=== PATIENT | male | born 1975 | race Caucasian/White ===

== ENCOUNTER 2016-04-30 18:28 | Emergency (ER) | payer OTHER ==
[2016-04-30 20:53] LABS: ALBUMIN 4.7 g/dL (3.5-5.0); BILIRUBIN - TOTAL 0.2 mg/dL (0.1-1.0); GLOBULIN (CALCULATION) 2.5 g/dL (2.2-4.2); POTASSIUM 4.2 mmol/L (3.5-5.1); TOTAL PROTEIN 7.2 g/dL (6.4-8.3)
== END 2016-04-30 22:04 | disposition home or self-care (01) ==
LOC: FER 18:28
PROVIDERS: Emergency Medicine Emergency Medical Services
DX: S33.5XXA Sprain of ligaments of lumbar spine, initial encounter (principal); K40.20 Bilateral inguinal hernia, without obstruction or gangrene, not specified as recurrent; K57.30 Diverticulosis of large intestine without perforation or abscess without bleeding; F17.210 Nicotine dependence, cigarettes, uncomplicated; Z88.2 Allergy status to sulfonamides; X50.1XXA Overexertion from prolonged static or awkward postures, initial encounter
CPT/HCPCS: 36415; 72110; 76870; 80053; J1100; J1170; J1885; J2405; J2800; Q9967

== ENCOUNTER 2020-12-14 04:20 | Emergency (ER) | payer OTHER ==
[~2020-12-14 04:20] MED LIST: BENTYL10 MG PO; CIPRO500 MG PO; METRONIDAZOLE500 MG PO; ULTRAM50 MG PO
[2020-12-14 04:53] LABS: BASOPHIL 0.5 % (0-2); EOSINOPHIL 1.5 % (0-5); HCT 48.1 % (42.0-52.0); HGB 16.1 g/dl (13.2-18.0); LYMPHOCYTE 27.9 % (15-48); MCH 32.7 pg (25.0-31.0); MCHC 33.5 g/dL (32.0-36.0); MCV 97.8 fL (78.0-100.0); MONOCYTE 7.8 % (0-12); MPV 8.7 fL (6.0-9.5); NRBC 0; PLT 220 K/uL (150-400); RBC 4.92 M/uL (4.70-6.00); RDW 12.2 % (11.5-14.0); WBC 12.7 K/uL (4.0-10.5)
[2020-12-14 05:11] LABS: ALBUMIN 3.8 g/dL (3.4-5.0); BILIRUBIN - TOTAL 0.4 mg/dL (0.2-1.0); BUN/CREAT RATIO (CALC) 22.2 RATIO; CREATININE 0.9 mg/dL (0.67-1.17); GLOBULIN (CALCULATION) 3.1 g/dL; POTASSIUM 4.2 mmol/L (3.5-5.1); TOTAL PROTEIN 6.9 g/dL (6.4-8.2)
[2020-12-14 06:19] LABS: BILIRUBIN NEGATIVE (NEGATIVE); BLOOD NEGATIVE Ery/uL (NEGATIVE); CLARITY CLEAR (CLEAR); COLOR YELLOW (YELLOW); GLUCOSE (U) NORMAL (NORMAL); LEUKOCYTES NEGATIVE Leu/uL (NEGATIVE); NITRITE NEGATIVE (NEGATIVE); PROTEIN NEGATIVE (NEGATIVE); UROBILINOGEN 0.2 mg/dL (0.2-1.0)
== END 2020-12-14 06:40 | disposition home or self-care (01) ==
LOC: FER 04:20
PROVIDERS: Emergency Medicine
DX: K57.32 Diverticulitis of large intestine without perforation or abscess without bleeding (principal); I10 Essential (primary) hypertension; F17.200 Nicotine dependence, unspecified, uncomplicated; Z88.2 Allergy status to sulfonamides
CPT/HCPCS: 36415; 80053; 81003; 83690; 85025; J1170; J1885; J7030; Q9967